=== PATIENT | male | born 1980 | race Caucasian/White ===

== ENCOUNTER 2016-05-11 14:14 | Emergency (ER) | payer OTHER ==
[2016-05-11 14:15] VITALS: BP 127/74; PULSE 94; RESP 24; TEMP 97.7; O2SAT 100
[2016-05-11] MEDS ORDERED: MORPHINE SULFATE 4 MG/ML INJ IM ONE (15:45)
[2016-05-11] MEDS ORDERED: ONDANSETRON ODT 4 MG TAB PO ONE (15:45)
--- NOTE | 2016-05-11 15:46 | PD ---
HPI Chief Complaint: Back/ Neck Pain or Injury Time Seen by Provider: 15:42 Travel History International Travel<30 days: No Contact w/Intl Traveler<30days: No Traveled to known affect area: No History of Present Illness HPI 35-year-old male presents to the emergency department for evaluation of low back pain that occurred approximately 20 minutes before arrival. Patient states that he was helping his brother pull an engine out of a car when it slipped. He reached down to grab it and all 400 pounds of the engine went on him pulling him. He denies falling over. He started with in-stent low back pain that radiated down the left leg. Patient states that he lost a small amount of urine when it occurred, but has not been incontinent since is actually holding his urine now. He denies any bowel incontinence. Patient believes he lost his urine due to the pain. He is ambulatory. He states the pain is worse with movement. He denies any fevers. No saddle anesthesias. He reports no chronic medical problems and taking no prescribed medications. He denies any IVDU. [facility] Social History Alcohol Use: Yes Tobacco Use: Yes Substance Use: No Allergies-Medications (Allergen,Severity, Reaction): Coded Allergies: Toradol (Verified Allergy, Severe, 05/11/16) ANAPHYLAXIS Serzone (Verified Adverse Reaction, Severe, Seizures, 05/11/16) TOOK FOR PTSD AFTER WAR FOR LOW SERATONIN LEVELS. Reported Meds & Prescriptions Reported Meds & Active Scripts Active Prednisone 20 Mg Tab 40 Mg PO DAILY 4 Days Lortab (Hydrocodone-Acetaminophen) 5-325 Mg Tab 1 Tab PO Q6H PRN Review of Systems Except as stated in HPI: all other systems reviewed are Neg Physical Exam Narrative GENERAL: Well-developed well-nourished male patient, ambulatory. Afebrile. SKIN: Warm and dry. HEAD: Normocephalic. Atraumatic. EYES: No scleral icterus. No injection or drainage. NECK: Supple, trachea midline. No JVD or lymphadenopathy. CARDIOVASCULAR: Regular rate and rhythm without murmurs, gallops, or rubs. Bilateral radial and pedal pulses 2+. RESPIRATORY: Breath sounds equal bilaterally. No accessory muscle use. Lungs sounds are clear to auscultation. GASTROINTESTINAL: Abdomen soft, non-tender, nondistended. MUSCULOSKELETAL: No cyanosis, or edema. Right lower extremity strength 5/5. Left lower extremity strength 4/5. All extremities are neurovascularly intact. Straight leg raise is positive on the left side. BACK: No obvious deformity. No CVA tenderness. Patient has tenderness to palpation of the midline lumbar spine and left lumbar paraspinal musculature. Data Data Last Documented VS Vital Signs Date Time Temp Pulse Resp B/P Pulse Ox O2 Delivery O2 Flow Rate FiO2 05/11/16 14:15 97.7 94 24 127/74 100 Room Air Orders Morphine Inj (Morphine Inj) (05/11/16 15:45) Ondansetron Odt (Zofran Odt) (05/11/16 15:45) Ct Lumb Spine W/O Contrast (05/11/16 ) [facility] Medical Decision Making Medical Screen Exam Complete: Yes Emergency Medical Condition: Yes Medical Record Reviewed: Yes Interpretation(s) Last Impressions Lumbar Spine CT 05/11/16 0000 Signed Impressions: Service Date/Time: Friday, May 11, 2016 16:00 - CONCLUSION: 1. No acute fracture or spondylolisthesis. 2. Moderate degenerative disc disease at the lumbosacral junction with disc bulge or mild protrusion and osteophytic ridging resulting in mild stenosis of lateral recesses and mild to moderate bilateral foraminal stenosis. Mild disc bulge also present at L4-5 without significant stenosis. Candelario Perkins MD Differential Diagnosis Muscle strain versus muscle spasm versus herniated disc versus fracture Narrative Course 35-year-old male presents to the emergency department for evaluation of low back pain that started about the 20 minutes prior to arrival when catching an engine. Patient appears uncomfortable on exam. I discussed the case my attending physician, Dr. Hu would like the patient to have a CT scan of the lumbar spine and reevaluation. Patient is given morphine 4 mg IM and Zofran [address] of the lumbar spine shows no acute fracture or spondylolisthesis. He does have moderate degenerative disc disease and disc bulge L5-S1 resulting in mild stenosis of lateral recess and mild to moderate bilateral foraminal stenosis. He also has a mild disc bulge at L4 to 5 without significant stenosis. He has no saddle anesthesias ambulating in exam room. Upon reexamination, strength is 5/5 bilaterally. Patient is instructed on need to follow with his primary care physician. He'll be discharged prescription for Lortab, ibuprofen, Robaxin, prednisone. He is instructed to return for any acute worsening of symptoms. Patient verbalizes agreement and understanding. Diagnosis Primary Impression: Bulging lumbar disc Additional Impression: Sciatica Qualified Code: M54.32 - Sciatica of left side Referrals: Primary Care Physician call for appointment Patient Instructions: Acute Low Back Pain (ED), General Instructions, Narcotic given in the ED Departure Forms: Tests/Procedures, Work Release Enter return to work date: May 15, 2016 Additional Instructions: Take Lortab as directed as needed for pain. Caution this can make you drowsy so do not drive after taking. Take Robaxin as instructed as needed for muscle pain/spasm. Take prednisone as directed. This is for inflammation. Start this tomorrow. Follow-up with your primary care physician. Return to the emergency department for any acute worsening of symptoms. Med/Other Pt SpecificInfo: Prescription(s) given Scripts Methocarbamol (Robaxin)750 Mg Oai198 Mg PO TID PRN (MUSCLE SPASM) #21 TAB Ref 0 Prov:Stephie Parrish 05/11/16 Prednisone 20 Mg Tab40 Mg PO DAILY 4 Days Ref 0 Prov:Stephie Parrish 05/11/16 Hydrocodone-Acetaminophen (Lortab)5-325 Mg Tab1 Tab PO Q6H PRN (PAIN) #16 TAB Ref 0 Prov:Jose Hu MD 05/11/16 Disposition: 01 DISCHARGE HOME Condition: Stable Stephie Parrish May 11, 2016 15:46
--- NOTE | 2016-05-11 16:46 | RADRPT ---
EXAM DATE/TIME: 05/11/2016 16:00 [facility] COMPARISON: No previous studies available for comparison. INDICATIONS : Back pain after heavy lifting. RADIATION DOSE: 35.86 CTDIvol (mGy) MEDICAL HISTORY : None SURGICAL HISTORY : None. ENCOUNTER: Initial ACUITY: 1 day PAIN SCALE: 6/10 LOCATION: Bilateral lumbar. TECHNIQUE: Volumetric scanning of the lumbar spine was performed. Multiplanar reconstructions in the sagittal, coronal and oblique axial planes were performed. Using automated exposure control and adjustment of the mA and/or kV according to patient size, radiation dose was kept as low as reasonably achievable t o obtain optimal diagnostic quality images. FINDINGS: VERTEBRAE: Normal vertebral body height. ALIGNMENT: No evidence of subluxation. T12-L1: The thecal sac has a normal diameter. No evidence of disc bulge or protrusion. The neural foramina are patent bilaterally. L1-L2: The thecal sac has a normal diameter. No evidence of disc bulge or protrusion. The neural foramina are patent bilaterally. L2-L3: The thecal sac has a normal diameter. No evidence of disc bulge or protrusion. The neural foramina are patent bilaterally. L3-L4: The thecal sac has a normal diameter. No evidence of disc bulge or protrusion. The neural foramina are patent bilaterally. L4-L5: There is a broad-based posterior disc bulge with mild encroachment on the lateral recesses. L5-S1: There is a broad-based posterior disc protrusion and osteophytic ridging. This results in mild encroa chment on the lateral recesses and mild to moderate bilateral foraminal stenosis. CONCLUSION: 1. No acute fracture or spondylolisthesis. 2. Moderate degenerative disc disease at the lumbosacral junction with disc bulge or mild protrusion and osteophytic ridging resulting in mild stenosis of lateral recesses and mild to moderate bilateral foraminal stenosis. Mild disc bulge also present at L4-5 without significant stenosis. Candelario Perkins MD on May 11, 2016 at 16:41 Board Certified Radiologist. This report was verified electronically.
[2016-05-11] MEDS ORDERED: HYDR-3533 PO (17:17)
[2016-05-11] MEDS ORDERED: PRED20 PO (17:24)
[2016-05-11] MEDS ORDERED: ROBA750T PO (17:25)
[2016-05-11] MEDS ORDERED: DEXAMETHASONE SOD PHOS 4 MG/ML VIAL IM ONE (17:30)
[2016-06-24] MEDS ORDERED: HYDR-3533 PO (10:10)
== END 2016-05-11 17:42 | disposition home or self-care (01) ==
LOC: NEPB 14:14
DX: M51.26 Other intervertebral disc displacement, lumbar region (principal); M54.32 Sciatica, left side; Z72.0 Tobacco use; X50.0XXA Overexertion from strenuous movement or load, initial encounter
CPT/HCPCS: 72131; 96372; 99283; J1100; J2270

== ENCOUNTER 2016-05-16 13:10 | Emergency (ER) | payer OTHER ==
[~2016-05-16] VITALS: Ht 175.3 cm; Wt 75.0 kg
[~2016-05-16 13:10] MED LIST: HYDR-3533 PO; PRED20 PO; ROBA750T PO
[2016-05-16 13:11] VITALS: BP 123/75; PULSE 88; RESP 20; TEMP 97.5; O2SAT 100
--- NOTE | 2016-05-16 13:27 | PD ---
Physical Exam Date Seen by Provider: May 16, 2016 Time Seen by Provider: 13:24 Narrative Patient seen in Triage with Worsening Left lower Back Pain with Numbness and Tingling into Left Great Toe. Patient returned to work and lifted something heavy with sudden onset Pain with urge to have BM at same time. Patient able to ambulate, but with pain. Patient recently seen a week ago with similar symptoms, but is worse today. Patient awaiting Bed Placement. Data Data Last Documented VS Vital Signs Date Time Temp Pulse Resp B/P Pulse Ox O2 Delivery O2 Flow Rate FiO2 05/16/16 13:11 97.5 88 20 123/75 100 Room Air [facility] Medical Record Reviewed: Yes Supervised Visit with JAVI: Yes Condition: Stable Irwin Martins May 16, 2016 13:27
[2016-05-16] MEDS ORDERED: BENA25TA3 PO (14:38)
[2016-05-16] MEDS ORDERED: DIAZEPAM 5 MG TAB PO ONE (15:45)
[2016-05-16] MEDS ORDERED: DEXAMETHASONE SOD PHOS 20 MG/5 ML VIAL IM ONE (15:45)
[2016-05-16] MEDS ORDERED: HYDROmorphone HCL PF 1 MG/ML VIAL IM ONE (15:45)
--- NOTE | 2016-05-16 16:12 | PD ---
HPI Chief Complaint: Back/ Neck Pain or Injury Time Seen by Provider: 15:02 Travel History International Travel<30 days: No Contact w/Intl Traveler<30days: No Traveled to known affect area: No History of Present Illness HPI Patient is a 35-year-old male who presents to emergency room with acute on chronic back pain. Patient reports that he hurt his low back last week as he was helping his brother lifted an engine. Patient reports that he was seen in the emergency room on May 11, [address] of his lumbar spine performed at that time. CT's from 05/11/16 showed no acute fractures or spondylolisthesis. There was moderate degenerative disc disease of the lumbosacral junction with disc bulge with mild protrusion and osteophytic ridging resulting in mild stenosis of lateral recesses and mild to moderate bilateral foraminal stenosis. Mild disc bulge present at L4-L5 without significant stenosis. 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 Reports that he felt as if his big toe felt numb. Patient denied any urinary incontinence or retention, denied any retention or incontinence of bowel. Patient with no saddle anesthesia. Patient ambulating in ER with normal gait. PFSH Social History Alcohol Use: Yes Tobacco Use: Yes Substance Use: No Allergies-Medications (Allergen,Severity, Reaction): Coded Allergies: Toradol (Verified Allergy, Severe, 05/16/16) ANAPHYLAXIS Serzone (Verified Adverse Reaction, Severe, Seizures, 05/16/16) TOOK FOR PTSD AFTER WAR FOR LOW SERATONIN LEVELS. Reported Meds & Prescriptions Reported Meds & Active Scripts Active Reported Benadryl Allergy (Diphenhydramine HCl) 25 Mg Tab 25 Mg PO Q6H PRN Review of Systems General / Constitutional: No: Fever Eyes: No: Visual changes HENT: No: Headaches Cardiovascular: No: Chest Pain or Discomfort Respiratory: No: Shortness of Breath Gastrointestinal: No: Abdominal Pain Genitourinary: No: Dysuria Musculoskeletal: Positive: Pain (back pain) Skin: No Rash Neurologic: No: Weakness Psychiatric: No: Depression Endocrine: No: Polydipsia Hematologic/Lymphatic: No: Easy Bruising Physical Exam Narrative GENERAL: mild distress SKIN: Focused skin assessment warm/dry. HEAD: Atraumatic. Normocephalic. EYES: Pupils equal and round. No scleral icterus. No injection or drainage. ENT: No nasal bleeding or discharge. Mucous membranes pink and moist. NECK: Trachea midline. No JVD. CARDIOVASCULAR: Regular rate and rhythm. No murmur appreciated. RESPIRATORY: No accessory muscle use. Clear to auscultation. Breath sounds equal bilaterally. GASTROINTESTINAL: Abdomen soft, non-tender, nondistended. Hepatic and splenic margins not palpable. MUSCULOSKELETAL: patient with left lower paraspinal muscle tenderness, patient with pain when lifting like to 30. Patient with saddle anesthesia, patient ambulating in ER with normal gait. NEUROLOGICAL: Awake and alert. No obvious cranial nerve deficits. Motor grossly within normal limits. Normal speech. PSYCHIATRIC: Appropriate mood and affect; insight and judgment normal. Data Data Last Documented VS Vital Signs Date Time Temp Pulse Resp B/P Pulse Ox O2 Delivery O2 Flow Rate FiO2 05/16/16 14:34 91 18 05/16/16 13:11 97.5 123/75 100 Room Air Orders Dexamethasone Inj (Decadron Inj) (05/16/16 15:45) Hydromorphone Pf Inj (Dilaudid Pf Inj) (05/16/16 15:45) Diazepam (Valium) (05/16/16 15:45) MDM Medical Decision Making Medical Screen Exam Complete: Yes Emergency Medical Condition: Yes Interpretation(s) Vital Signs Date Time Temp Pulse Resp B/P Pulse Ox O2 Delivery O2 Flow Rate FiO2 05/16/16 14:34 91 18 05/16/16 13:11 97.5 88 20 123/75 100 Room Air Differential Diagnosis Acute on chronic low back pain, sciatica, lumbar stenosis, cauda equina Narrative Course 35-year-old male who presents to emergency room with complaints of low back pain. Patient reports that he has been having increased low back pain for the past week, back pain was exacerbated by lifting a 15 pound bag of flour today. I did offer patient an MRI of his low back for further evaluation of symptoms, patient refuses MRI this time. Cauda equina is within my differential, patient does not have saddle anesthesia, denies incontinence of urine or stools, patient ambulating in the emergency with normal gait. Patient with low risk for cauda equina at this time. Plan to treat symptomatically, patient requesting a work note as he cannot lift heavy objects Patient reevaluated, patient feeling much better. Patient ambulating in the emergency room without any difficulty. Discussed with patient need to follow- up with a primary care doctor or orthopedic surgeon. Signs and symptoms of when to return to the emergency room was reviewed patient in detail. He understands not to drive until taking narcotic pain medications or benzo's. Patient thankful for care Diagnosis Primary Impression: Bulging lumbar disc Additional Impression: Sciatica Qualified Code: M54.32 - Sciatica of left side Referrals: Luis Horton MD Patient Instructions: General Instructions, Narcotic given in the ED Departure Forms: Tests/Procedures, Work Release Enter return to work date: May 20, 2016 Special Instructions: No Heavy Lifting or heavy duty lifting until seen and cleared by a Physician Additional Instructions: Please do not drive or operate heavy machinery while taking narcotic pain medications Please follow-up with orthopedic surgeon as well as your primary care doctor Return to the emergency room if symptoms worsen or progress Return to the emergency room as needed. Med/Other Pt SpecificInfo: Prescription(s) given Scripts Diazepam (Valium)5 Mg Tab5 Mg PO BID PRN (SPASM) #12 TAB Ref 0 Prov:Isela Dave DO 05/16/16 Methylprednisolone Dosepak (Medrol Dosepak)4 Mg Dspk4 Mg PO DIRECTED #1 DSPK Ref 0 Per Pharmacist direction Prov:Isela Dave DO 05/16/16 Oxycodone-Acetaminophen (Percocet)5-325 mg Tab1 Tab PO Q6H PRN (PAIN) #10 TAB Ref 0 Prov:Isela Dave DO 05/16/16 Disposition: 01 DISCHARGE HOME Condition: Stable Isela Dave DO May 16, 2016 16:12
[2016-05-16] MEDS ORDERED: PERC5TAB12 PO (16:50)
[2016-05-16] MEDS ORDERED: MEDR4PAK PO (16:50)
[2016-05-16] MEDS ORDERED: DIAZ5 PO (16:50)
[2016-06-24] MEDS ORDERED: HYDR-3533 PO (10:10)
== END 2016-05-16 17:08 | disposition home or self-care (01) ==
LOC: NEPB 13:10
DX: M51.26 Other intervertebral disc displacement, lumbar region (principal); M54.32 Sciatica, left side; R20.0 Anesthesia of skin; Z72.0 Tobacco use; X50.0XXA Overexertion from strenuous movement or load, initial encounter; Y99.0 Civilian activity done for income or pay
CPT/HCPCS: 96372; 99282; J1100; J1170

== ENCOUNTER 2017-05-03 13:46 | Observation (INO) | payer SELFPAY ==
[~2017-05-03] VITALS: Ht 175.3 cm; Wt 70.0 kg
[~2017-05-03 13:46] MED LIST changes: -HYDR-3533 PO; +PERC5TAB12 PO; -PRED20 PO; -ROBA750T PO
[2017-05-03] MEDS ORDERED: SODIUM CHLORID 0.9% 500 ML INJ 500 ML IV ONE (14:00)
[2017-05-03] MEDS ORDERED: SODIUM CHLORIDE 0.9% FLUSH 10 ML FLUSH IVF PRN (14:00)
--- NOTE | 2017-05-03 14:11 | PD ---
HPI Chief Complaint: Chest Pain Time Seen by Provider: 13:55 Travel History International Travel<30 days: No Contact w/Intl Traveler<30days: No Traveled to known affect area: No History of Present Illness HPI 36-year-old male presents to emergency department for evaluation of acute onset chest pressure with associated dizziness/lightheaded sensation while at work today. Patient states the pressure was left sided. He has history of a "small RI" in 2011 that he report as stress-induced. Patient states he has not had a stress test since then. Patient was given aspirin in route. He refused nitroglycerin. He currently has the pressure but no significant pain. Reports mild nausea. No recent illnesses, fever, or chills. No other symptoms to report. PFSH Past Medical History Chest Pain: Yes Past Surgical History Other Surgery: Yes (STATES VEIN CLAMPING IN GROIN AT 14 YRS OLD) Social History Alcohol Use: No Tobacco Use: No Substance Use: No Allergies-Medications (Allergen,Severity, Reaction): Coded Allergies: ketorolac (Verified Allergy, Severe, Anaphylaxis, 05/03/17) ANAPHYLAXIS nefazodone (Verified Adverse Reaction, Severe, Seizures, 05/03/17) TOOK FOR PTSD AFTER WAR FOR LOW SERATONIN LEVELS. Reported Meds & Prescriptions Reported Meds & Active Scripts Active Percocet (Oxycodone-Acetaminophen) 5-325 mg Tab 1 Tab PO Q4H PRN 5 Days Review of Systems Except as stated in HPI: all other systems reviewed are Neg Physical Exam Narrative GENERAL: Well-nourished male patient, in no acute distress. SKIN: Focused skin assessment warm/dry. HEAD: Atraumatic. Normocephalic. EYES: Pupils equal and round. No scleral icterus. No injection or drainage. ENT: No nasal bleeding or discharge. Mucous membranes pink and moist. NECK: Trachea midline. No JVD. CARDIOVASCULAR: Regular rate and rhythm. No murmur appreciated. RESPIRATORY: No accessory muscle use. Clear to auscultation. Breath sounds equal bilaterally. GASTROINTESTINAL: Abdomen soft, non-tender, nondistended. Hepatic and splenic margins not palpable. MUSCULOSKELETAL: No obvious deformities. No clubbing. No cyanosis. No edema. NEUROLOGICAL: Awake and alert. No obvious cranial nerve deficits. Motor grossly within normal limits. Normal speech. PSYCHIATRIC: Appropriate mood and affect; insight and judgment normal. Data Data Last Documented VS Vital Signs Date Time Temp Pulse Resp B/P (MAP) Pulse Ox O2 Delivery O2 Flow Rate FiO2 05/03/17 14:15 100 Room Air 05/03/17 14:15 05/03/17 14:13 98.6 88 18 Orders Orders Electrocardiogram (05/03/17 13:56) Basic Metabolic Panel (Bmp) (05/03/17 13:56) Ckmb (Isoenzyme) Profile (05/03/17 13:56) Complete Blood Count With Diff (05/03/17 13:56) Magnesium (Mg) (05/03/17 13:56) Prothrombin Time / Inr (Pt) (05/03/17 13:56) Act Partial Throm Time (Ptt) (05/03/17 13:56) Troponin I (05/03/17 13:56) Lipase (05/03/17 13:56) Chest, Single Ap (05/03/17 13:56) Ecg Monitoring (05/03/17 13:56) Bilateral Bp Monitoring (05/03/17 13:56) Iv Access Insert/Monitor (05/03/17 13:56) Oximetry (05/03/17 13:56) Oxygen Administration (05/03/17 13:56) Sodium Chloride 0.9% Flush (Ns Flush) (05/03/17 14:00) Sodium Chlorid 0.9% 500 Ml Inj (Ns 500 M (05/03/17 14:00) CKMB (05/03/17 14:20) CKMB% (05/03/17 14:20) Admit Order (Ed Use Only) (05/03/17 15:06) Labs Laboratory Tests Test 05/03/17 14:20 White Blood Count 9.6 TH/MM3 Red Blood Count 4.40 MIL/MM3 Hemoglobin 14.5 GM/DL Hematocrit 41.0 % Mean Corpuscular Volume 93.1 FL Mean Corpuscular Hemoglobin 33.0 PG Mean Corpuscular Hemoglobin Concent 35.4 % Red Cell Distribution Width 13.9 % Platelet Count 224 TH/MM3 Mean Platelet Volume 7.7 FL Neutrophils (%) (Auto) 54.5 % Lymphocytes (%) (Auto) 30.5 % Monocytes (%) (Auto) 7.8 % Eosinophils (%) (Auto) 6.6 % Basophils (%) (Auto) 0.6 % Neutrophils # (Auto) 5.2 TH/MM3 Lymphocytes # (Auto) 2.9 TH/MM3 Monocytes # (Auto) 0.7 TH/MM3 Eosinophils # (Auto) 0.6 TH/MM3 Basophils # (Auto) 0.1 TH/MM3 CBC Comment DIFF FINAL Differential Comment Prothrombin Time 10.3 SEC Prothromb Time International Ratio 1.0 RATIO Activated Partial Thromboplast Time 24.5 SEC Blood Urea Nitrogen 11 MG/DL Creatinine 1.18 MG/DL Random Glucose 85 MG/DL Calcium Level 8.9 MG/DL Magnesium Level 2.1 MG/DL Sodium Level 141 MEQ/L Potassium Level 4.0 MEQ/L Chloride Level 108 MEQ/L Carbon Dioxide Level 23.9 MEQ/L Anion Gap 9 MEQ/L Estimat Glomerular Filtration Rate 69 ML/MIN Total Creatine Kinase 369 U/L Creatine Kinase MB 3.7 NG/ML Creatine Kinase MB % 1.0 % Troponin I LESS THAN 0.02 NG/ML Lipase 72 U/L MDM Medical Decision Making Medical Screen Exam Complete: Yes Emergency Medical Condition: Yes Medical Record Reviewed: Yes Differential Diagnosis ACs versus pleuritic pain versus chest wall pain Narrative Course 36-year-old male presents to the emergency department for evaluation of acute onset chest pressure with associated dizziness. Patient appears well and nontoxic. Vital signs are stable. EKG is reviewed by my attending without any acute ST elevation or depression. Chest pain workup is initiated. Laboratory Tests Test 05/03/17 14:20 White Blood Count 9.6 TH/MM3 Red Blood Count 4.40 MIL/MM3 Hemoglobin 14.5 GM/DL Hematocrit 41.0 % Mean Corpuscular Volume 93.1 FL Mean Corpuscular Hemoglobin 33.0 PG Mean Corpuscular Hemoglobin Concent 35.4 % Red Cell Distribution Width 13.9 % Platelet Count 224 TH/MM3 Mean Platelet Volume 7.7 FL Neutrophils (%) (Auto) 54.5 % Lymphocytes (%) (Auto) 30.5 % Monocytes (%) (Auto) 7.8 % Eosinophils (%) (Auto) 6.6 % Basophils (%) (Auto) 0.6 % Neutrophils # (Auto) 5.2 TH/MM3 Lymphocytes # (Auto) 2.9 TH/MM3 Monocytes # (Auto) 0.7 TH/MM3 Eosinophils # (Auto) 0.6 TH/MM3 Basophils # (Auto) 0.1 TH/MM3 CBC Comment DIFF FINAL Differential Comment Prothrombin Time 10.3 SEC Prothromb Time International Ratio 1.0 RATIO Activated Partial Thromboplast Time 24.5 SEC Blood Urea Nitrogen 11 MG/DL Creatinine 1.18 MG/DL Random Glucose 85 MG/DL Calcium Level 8.9 MG/DL Magnesium Level 2.1 MG/DL Sodium Level 141 MEQ/L Potassium Level 4.0 MEQ/L Chloride Level 108 MEQ/L Carbon Dioxide Level 23.9 MEQ/L Anion Gap 9 MEQ/L Estimat Glomerular Filtration Rate 69 ML/MIN Total Creatine Kinase 369 U/L Creatine Kinase MB 3.7 NG/ML Creatine Kinase MB % 1.0 % Troponin I LESS THAN 0.02 NG/ML Lipase 72 U/L Findings are reviewed and discussed with the patient. Based on cardiac history and last stress test in 2011, patient will be admitted observation chest pain center. Diagnosis Primary Impression: Chest pain Qualified Codes: R07.9 - Chest pain, unspecified Admitting Information Admitting Physician Requests: Observation Condition: Stable Eleonora Pinzon May 03, 2017 14:11
[2017-05-03 14:13] VITALS: BP 122/73; PULSE 88; RESP 18; TEMP 98.6; O2SAT 100
[2017-05-03 14:15] VITALS: O2SAT 100
[2017-05-03 14:33] LABS: AUTOMATED NEUTROPHIL # 5.2 TH/MM3 (1.8-7.7); BASOPHIL # 0.1 TH/MM3 (0-0.2); BASOPHIL % 0.6 % (0.0-2.0); EOSINOPHIL # 0.6 TH/MM3 (0-0.4); EOSINOPHIL % 6.6 % (0.0-4.0); HEMOGLOBIN 14.5 GM/DL (13.0-17.0); LYMPH % 30.5 % (9.0-44.0); LYMPHOCYTE # 2.9 TH/MM3 (1.0-4.8); MEAN CELL VOLUME 93.1 FL (80.0-100.0); MEAN CORPUSCULAR HGB CONC 35.4 % (32.0-36.0); MEAN PLATELET VOLUME 7.7 FL (7.0-11.0); MONO % 7.8 % (0.0-8.0); MONOCYTE # 0.7 TH/MM3 (0-0.9); NEUT % 54.5 % (16.0-70.0); PLATELET COUNT 224 TH/MM3 (150-450); RED CELL DISTRIBUTION WIDTH 13.9 % (11.6-17.2); WHITE BLOOD COUNT 9.6 TH/MM3 (4.0-11.0)
--- NOTE | 2017-05-03 14:33 | RADRPT ---
EXAM DATE/TIME: 05/03/2017 14:10 [facility] COMPARISON: SACRUM AND COCCYX, January 20, 2017, 20:50. INDICATIONS : Chest pain that started today. MEDICAL HISTORY : None. SURGICAL HISTORY : None. ENCOUNTER: Initial ACUITY: 1 day PAIN SCORE: 5/10 LOCATION: Bilateral chest FINDINGS: A single view of the chest demonstrates the lungs to be symmetrically aerated without evidence of mas s, infiltrate or effusion. The cardiomediastinal contours are unremarkable. Osseous structures are intact. CONCLUSION: 1. No acute cardiopulmonary findings identified. Reed Mcmahon MD on May 03, 2017 at 14:30 Board Certified Radiologist. This report was verified electronically.
[2017-05-03 14:43] LABS: PROTHROMBIN TIME - PATIENT 10.3 SEC (9.8-11.6)
[2017-05-03 14:51] LABS: TROPONIN I LESS THAN 0.02 NG/ML (0.02-0.05)
[2017-05-03 14:56] LABS: BICARBONATE 23.9 MEQ/L (21.0-32.0); BLOOD UREA NITROGEN 11 MG/DL (7-18); CALCIUM 8.9 MG/DL (8.5-10.1); CHLORIDE 108 MEQ/L (98-107); CREATININE 1.18 MG/DL (0.60-1.30); GLOMERULAR FILTRATION RATE 69 ML/MIN (>89); GLUCOSE,RANDOM 85 MG/DL (74-106); MAGNESIUM 2.1 MG/DL (1.5-2.5); SODIUM (NA) 141 MEQ/L (136-145)
[2017-05-03 15:27] VITALS: BP 114/78; PULSE 56; RESP 17; O2SAT 100
[2017-05-03 16:33] VITALS: BP 132/65
--- NOTE | 2017-05-04 13:13 | EKG ---
Date Performed: 05/03/2017 Time Performed: 14:17:36 PTAGE: 36 years EKG: Right ventricular conduction disturbance Borderline left axis deviation BORDERLINE ECG NO PREVIOUS TRACING DOCTOR: Rustam Rider Interpretating Date/Time 05/04/2017 13:11:28
== END 2017-05-03 16:34 | disposition left against medical advice (07) ==
LOC: NEPE 13:46 → NEDA 15:07
DX: R07.89 Other chest pain (principal); R42 Dizziness and giddiness; R11.0 Nausea; I25.2 Old myocardial infarction
CPT/HCPCS: 71045; 80048; 82550; 82552; 83690; 83735; 84484; 85025; 85610; 85730; 93005; 99285; G0378; J7040